=== PATIENT | female | born 1945 | race Caucasian/White ===

== ENCOUNTER → 2024-02-10 07:07 | Outpatient (REF) | payer MEDICARE, SELFPAY | LOC: WDC 07:07 | PROVIDERS: ATTENDING PHYSICIAN Obstetrics & Gynecology; FAMILY PHYSICIAN Internal Medicine | DX: Z12.31 Encounter for screening mammogram for malignant neoplasm of breast (principal) | CPT/HCPCS: 77063; 77067 ==

== ENCOUNTER → 2025-02-15 07:06 | Outpatient (REF) | payer MEDICARE, SELFPAY | LOC: WDC 07:06 | PROVIDERS: ATTENDING PHYSICIAN Obstetrics & Gynecology; FAMILY PHYSICIAN Internal Medicine | DX: Z12.31 Encounter for screening mammogram for malignant neoplasm of breast (principal) | CPT/HCPCS: 77063; 77067 ==

== ENCOUNTER → 2025-02-24 09:53 | Outpatient (REF) | payer MEDICARE, SELFPAY | LOC: WDC 09:53 | PROVIDERS: ATTENDING PHYSICIAN Obstetrics & Gynecology; FAMILY PHYSICIAN Internal Medicine | DX: R92.8 Other abnormal and inconclusive findings on diagnostic imaging of breast (principal) | CPT/HCPCS: 76642 ==